=== PATIENT | female | born 1970 | race Caucasian/White ===

== ENCOUNTER 2016-08-27 20:41 | Emergency (ER) | payer BC, OTHER ==
[~2016-08-27] VITALS: Ht 157.5 cm; Wt 89.8 kg
[2016-08-27 20:41] VITALS: BP 172/100
--- NOTE | 2016-08-28 09:08 | REP ---
Left thumb three views : There is no fracture or dislocation. Mineralization and joint spaces are normal. There are no calcifications or foreign bodies. Impression: Negative left thumb. Signed by Dequan Wharton MD 08/28/2016 08:58 A
== END 2016-08-27 22:50 | disposition home or self-care (01) ==
LOC: M ED 22:31
DX: S60.012A Contusion of left thumb without damage to nail, initial encounter (principal); W22.8XXA Striking against or struck by other objects, initial encounter; Y92.019 Unspecified place in single-family (private) house as the place of occurrence of the external cause; Y93.9 Activity, unspecified; Y99.9 Unspecified external cause status; F17.200 Nicotine dependence, unspecified, uncomplicated

== ENCOUNTER → 2017-11-27 | Outpatient (REF) | payer BC | LOC: M LAB REF 15:43 | DX: N60.31 Fibrosclerosis of right breast (principal) | CPT/HCPCS: 88305 ==

== ENCOUNTER → 2019-01-31 | Outpatient (REF) | payer BC | LOC: M LAB REF 15:46 | PROVIDERS: ATTEND Radiology Diagnostic Radiology | DX: N60.12 Diffuse cystic mastopathy of left breast (principal); N60.82 Other benign mammary dysplasias of left breast ==

== ENCOUNTER → 2019-05-01 | Outpatient (CLI) | payer BC ==
--- NOTE | 2019-05-01 11:51 | REP ---
Clinical: Costochondral junction syndrome . Comparison: None . Technique: PA and lateral. Findings: The mediastinum and cardiac silhouette are normal. The lung sun are clear and without acute consolidation, effusion, or pneumothorax. The skeletal structures are intact and normal. Impression: 1. No acute cardiopulmonary process. Electronically Signed by Jeffy Pimentel MD 05/01/2019 11:43 A
[2019-05-01 16:33] LABS: BASO % 0.5 % (0.0-1.0); EOS # 0.1 10^3/uL (0.0-0.5); EOS % 0.9 % (0.0-3.0); HEMATOCRIT 44.8 % (36.0-47.0); HEMOGLOBIN 14.8 g/dl (12.0-15.5); LYMPH # 2.5 10^3/uL (1.5-5.0); MEAN CORPUSCULAR VOLUME 96.8 fl (80.0-96.0); MONO # 0.5 10^3/uL (0.0-0.8); MONO % 5.9 % (0.0-5.0); NEUTROPHILS # 4.8 10^3/uL (1.5-8.5); NEUTROPHILS % 60.4 % (36.0-66.0); PLATELET COUNT, AUTOMATED 328 10^3/uL (150-450); RED BLOOD COUNT 4.63 10^6/uL (4.00-5.40); WHITE BLOOD COUNT 7.9 10^3/uL (4.0-10.0)
[2019-05-01 16:38] LABS: ALBUMIN 4.2 GM/DL (3.2-5.2); ALT/SGPT 23 U/L (12-78); AMYLASE 38 U/L (25-115); BILIRUBIN,TOTAL 0.4 MG/DL (0.2-1.0); BLOOD UREA NITROGEN 8 MG/DL (7-18); CALCIUM LEVEL 8.9 MG/DL (8.5-10.1); CARBON DIOXIDE LEVEL 27 MEQ/L (21-32); CHLORIDE LEVEL 106 MEQ/L (98-107); CK-MB VALUE MASS < 1.0 NG/ML (<3.6); CPK CREATINE PHOSPHOKINASE 112 U/L (26-192); CREATININE FOR GFR 0.76 MG/DL (0.55-1.30); GLOMERULAR FILTRATION RATE > 60.0 (>58); GLUCOSE, FASTING 85 MG/DL (70-100); LIPASE 113 U/L (73-393); MB/CK RELATIVE INDEX 0.89 (< OR =4); POTASSIUM SERUM 4.8 MEQ/L (3.5-5.1); SODIUM LEVEL 139 MEQ/L (136-145); TROPONIN I < 0.02 NG/ML (< 0.10)
== END ==
LOC: M WUC 11:13
PROVIDERS: ATTEND Nurse Practitioner Family
DX: M94.0 Chondrocostal junction syndrome [Tietze] (principal); R51 Headache; R19.7 Diarrhea, unspecified

== ENCOUNTER → 2019-05-01 | Outpatient (REF) | payer BC ==
[~2019-05-01] MED LIST: AMLO25TA PO; AVAP150T31 PO; DICY10CA13 PO; LEVOTAB10 PO; LEXA1TAB2 PO
== END ==
LOC: M LAB REF 15:55
PROVIDERS: ATTEND Nurse Practitioner Family
DX: R19.7 Diarrhea, unspecified (principal)

== ENCOUNTER → 2019-05-03 | Outpatient (REF) | payer BC | LOC: M LAB REF 12:40 | PROVIDERS: ATTEND Internal Medicine | DX: R53.83 Other fatigue (principal); I10 Essential (primary) hypertension; R19.7 Diarrhea, unspecified ==

== ENCOUNTER 2019-05-05 15:08 | Emergency (ER) | payer BC ==
[~2019-05-05] VITALS: Ht 160 cm; Wt 94.6 kg
[2019-05-05] MEDS ORDERED: LEXA1TAB2 PO (15:17)
[2019-05-05] MEDS ORDERED: AMLO25TA PO (15:17)
[2019-05-05] MEDS ORDERED: LEVOTAB10 PO (15:17)
[2019-05-05] MEDS ORDERED: DICY10CA13 PO (15:17)
[2019-05-05] MEDS ORDERED: AVAP150T31 PO (15:17)
[2019-05-05 16:04] LABS: BASO % 0.4 % (0.0-1.0); EOS # 0.1 10^3/uL (0.0-0.5); EOS % 0.7 % (0.0-3.0); HEMATOCRIT 43.9 % (36.0-47.0); HEMOGLOBIN 15.4 g/dl (12.0-15.5); LYMPH # 2.7 10^3/uL (1.5-5.0); LYMPH % 30.8 % (24.0-44.0); MEAN CORPUSCULAR HEMOGLOBIN 32.6 pg (27.0-33.0); MEAN CORPUSCULAR HGB CONC 35.1 g/dl (32.0-36.5); MEAN CORPUSCULAR VOLUME 92.8 fl (80.0-96.0); MONO # 0.5 10^3/uL (0.0-0.8); MONO % 5.5 % (0.0-5.0); NEUTROPHILS # 5.6 10^3/uL (1.5-8.5); NEUTROPHILS % 62.4 % (36.0-66.0); PLATELET COUNT, AUTOMATED 306 10^3/uL (150-450); RED BLOOD COUNT 4.73 10^6/uL (4.00-5.40); WHITE BLOOD COUNT 8.9 10^3/uL (4.0-10.0)
--- NOTE | 2019-05-05 16:43 | REP ---
Clinical: Headache and dizziness Comparison: none Findings: The ventricles, sulci, and cisterns are normal in position and appearance. Tirado-white differentiation is maintained. No acute intracranial hemorrhage, mass/mass effect, pathology or trauma/injury. No evidence for acute infarction. No extra-axial fluid collection. Calvarium is intact. Paranasal sinuses and mastoid air cells are clear. Impression: Normal noncontrast head CT. No evidence for acute intracranial pathology or trauma/injury. Electronically Signed by Jeffy Pimentel MD 05/05/2019 04:34 P
[2019-05-05] MEDS: GASTROGRAFIN SOLUTION 30ML PO SCH ×2 (17:26→18:50)
[2019-05-05] MEDS ORDERED: ISOVUE-370 76% 100ML VIAL (Q9967) As Ordered ONE (18:38)
--- NOTE | 2019-05-05 19:44 | REPVR ---
PROCEDURE INFORMATION: Exam: CT Abdomen And Pelvis With Contrast Exam date and time: 05/05/2019 6:44 PM Age: 48 years old Clinical indication: Constipation; Additional info: Bowel habitus change TECHNIQUE: Imaging protocol: Computed tomography of the abdomen and pelvis with intravenous contrast. Radiation optimization: All CT scans at this facility use at least one of these dose optimization techniques: automated exposure control; mA and/or kV adjustment per patient size (includes targeted exams where dose is matched to clinical indication); or iterative reconstruction. Contrast material: ISOVUE 370; Contrast volume: 100 ml; Contrast route: IV; COMPARISON: No relevant prior studies available. FINDINGS: Liver: 2.0 cm simple cyst in the liver. Liver is otherwise unremarkable. Gallbladder and bile ducts: Normal. No calcified stones. No ductal dilation. Pancreas: Normal. No ductal dilation. Spleen: Normal. No splenomegaly. Adrenals: Normal. No mass. Kidneys and ureters: Nonobstructing calyceal stone in the left kidney. Kidneys are otherwise unremarkable. No hydronephrosis. Stomach and bowel: There is mild colonic diverticulosis without evidence of diverticulitis. Appendix: No evidence of appendicitis. Intraperitoneal space: Unremarkable. No free air. No significant fluid collection. Vasculature: Unremarkable. No abdominal aortic aneurysm. Lymph nodes: Unremarkable. No enlarged lymph nodes. Bladder: Unremarkable as visualized. Reproductive: There has been prior hysterectomy. 16 mm hyperattenuating nodule in the vaginal cuff. Bones/joints: There are degenerative changes in the spine and pelvis. Soft tissues: Small fat-containing umbilical hernia. IMPRESSION: 1. Colonic diverticulosis without evidence of diverticulitis. 2. Small enhancing nodule in the vaginal cuff or in the cervix if a cervix sparing hysterectomy was performed. Correlation with pelvic ultrasound maybe beneficial. 3. No acute findings. Other incidental findings as above. Electronically signed by: Vern Shoemaker On 05/05/2019 19:44:16 PM
[2019-05-05 21:00] VITALS: BP 164/92
--- NOTE | 2019-05-06 08:31 | ECGEPIP ---
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
== END 2019-05-05 21:46 | disposition home or self-care (01) ==
LOC: M ED 15:08
DX: R10.9 Unspecified abdominal pain (principal); R93.5 Abnormal findings on diagnostic imaging of other abdominal regions, including retroperitoneum; K57.30 Diverticulosis of large intestine without perforation or abscess without bleeding; K76.89 Other specified diseases of liver; N80.9 Endometriosis, unspecified; I10 Essential (primary) hypertension; F32.9 Major depressive disorder, single episode, unspecified; J30.9 Allergic rhinitis, unspecified; F17.200 Nicotine dependence, unspecified, uncomplicated; Z79.899 Other long term (current) drug therapy
CPT/HCPCS: 70450; 74177; 80047; 85025; 93005; 99285; Q9963; Q9967

== ENCOUNTER → 2019-08-22 | Outpatient (CLI) | payer BC ==
--- NOTE | 2019-08-22 19:04 | ECGEPIP ---
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
== END ==
LOC: M LAB 14:18
PROVIDERS: ATTEND Orthopaedic Surgery Hand Surgery
DX: Z01.810 Encounter for preprocedural cardiovascular examination (principal)

== ENCOUNTER → 2019-08-26 | Outpatient (CLI) | payer BC | LOC: M LABSMTC 09:24 | PROVIDERS: ATTEND Orthopaedic Surgery Hand Surgery | DX: Z03.818 Encounter for observation for suspected exposure to other biological agents ruled out (principal); Z11.59 Encounter for screening for other viral diseases ==

== ENCOUNTER → 2019-08-29 | Outpatient (REF) | payer BC | LOC: M LAB REF 16:48 | PROVIDERS: ATTEND Orthopaedic Surgery Hand Surgery | DX: M65.18 Other infective (teno)synovitis, other site (principal) ==

== ENCOUNTER → 2019-11-06 | Outpatient (REF) | payer BC | LOC: M LAB REF 16:39 | PROVIDERS: ATTEND Internal Medicine | DX: D51.9 Vitamin B12 deficiency anemia, unspecified (principal) ==

== ENCOUNTER 2020-12-08 08:03 | Emergency (ER) | payer BC ==
[~2020-12-08] VITALS: Ht 157.5 cm; Wt 91.9 kg
[2020-12-08 08:08] VITALS: BP 160/98
[2020-12-08] MEDS ORDERED: NS 1,000 ML IV SCH (09:10)
[2020-12-08] MEDS ORDERED: ONDANSETRON 4MG/2ML VIAL IV ONE (09:25)
[2020-12-08] MEDS ORDERED: NS 1,000 ML IV ONE (09:25)
[2020-12-08] MEDS ORDERED: NICOTINE 14 MG/24 HR TRANSDERMAL TD ONE (09:30)
[2020-12-08 09:41] LABS: HEMATOCRIT 42.9 % (36.0-47.0); MEAN CORPUSCULAR HEMOGLOBIN 32.4 pg (27.0-33.0); MEAN CORPUSCULAR VOLUME 92.7 fl (80.0-96.0); PLATELET COUNT, AUTOMATED 303 10^3/uL (150-450); RED BLOOD COUNT 4.63 10^6/uL (4.00-5.40); WHITE BLOOD COUNT 8.5 10^3/uL (4.0-10.0)
[2020-12-08 10:18] LABS: BLOOD UREA NITROGEN 7 MG/DL (7-18); CALCIUM LEVEL 9.2 MG/DL (8.5-10.1); CARBON DIOXIDE LEVEL 25 MEQ/L (21-32); CHLORIDE LEVEL 107 MEQ/L (98-107); CK-MB VALUE MASS 2.4 NG/ML (<3.6); CPK CREATINE PHOSPHOKINASE 172 U/L (26-192); CREATININE FOR GFR 0.71 MG/DL (0.55-1.30); GLOMERULAR FILTRATION RATE > 60.0 (>58); GLUCOSE, FASTING 122 MG/DL (70-100); POTASSIUM SERUM 3.7 MEQ/L (3.5-5.1); SODIUM LEVEL 139 MEQ/L (136-145); TROPONIN I < 0.02 NG/ML (< 0.10)
--- NOTE | 2020-12-08 10:43 | REP ---
INDICATION: chest tightness. COMPARISON: 05/01/2019 the only prior TECHNIQUE: PA and lateral FINDINGS: The superior mediastinal structures are midline. The cardiac silhouette is unremarkable in size, shape, and position. The diaphragmatic surfaces of the lungs are regular, and the costophrenic angles are clear. The pulmonary sun are clear. The imaged osseous structures are intact. IMPRESSION: There is no acute cardiopulmonary disease. <Electronically signed by Alexey Jean > 12/08/20 [id number]
[2020-12-08] MEDS ORDERED: ZOFR4TAB16 PO (11:22)
--- NOTE | 2020-12-08 14:00 | ECGEPIP ---
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
== END 2020-12-08 11:48 | disposition home or self-care (01) ==
LOC: M ED 08:03
DX: A08.4 Viral intestinal infection, unspecified (principal); E86.0 Dehydration; I10 Essential (primary) hypertension; F17.210 Nicotine dependence, cigarettes, uncomplicated; Z98.890 Other specified postprocedural states
CPT/HCPCS: 71046; 80048; 82550; 82553; 84484; 85027; 87798; 93005; 94760; 96374; 99284; J2405

== ENCOUNTER → 2022-04-29 | Outpatient (CLI) | payer OTHER ==
[~2022-04-29] MED LIST changes: +ZOFR4TAB16 PO
== END ==
LOC: M RAD 11:31
PROVIDERS: ATTEND Physician Assistant Medical
DX: M25.572 Pain in left ankle and joints of left foot (principal); S99.922A Unspecified injury of left foot, initial encounter

== ENCOUNTER → 2022-07-05 | Outpatient (CLI) | payer OTHER ==
[~2022-07-05] MED LIST changes: +ISOVUE-370 76% 100ML VIAL As Ordered ONE
== END ==
LOC: M RAD 14:48
PROVIDERS: ATTEND Otolaryngology
DX: R49.0 Dysphonia (principal); R05.9 Cough, unspecified
CPT/HCPCS: 70491; Q9967

== ENCOUNTER → 2022-08-16 | Outpatient (CLI) | payer OTHER ==
[~2022-08-16] MED LIST changes: -ISOVUE-370 76% 100ML VIAL As Ordered ONE
== END ==
LOC: M RAD 15:32
PROVIDERS: ATTEND Internal Medicine
DX: E04.2 Nontoxic multinodular goiter (principal)

== ENCOUNTER → 2023-03-06 | Outpatient (REF) | payer OTHER ==
[~2023-03-06] MED LIST changes: +DICY-61 PO; -DICY10CA13 PO
== END ==
LOC: M LAB REF 16:41
PROVIDERS: ATTEND Ophthalmology
DX: D22.30 Melanocytic nevi of unspecified part of face (principal)

== ENCOUNTER → 2023-03-14 | Outpatient (CLI) | payer OTHER ==
[2023-03-14 10:03] LABS: BASO % 0.5 % (0.0-1.0); EOS # 0.1 10^3/uL (0.0-0.5); EOS % 0.8 % (0.0-3.0); HEMATOCRIT 45.4 % (36.0-47.0); HEMOGLOBIN 15.8 g/dl (12.0-15.5); LYMPH % 25.4 % (24.0-44.0); MEAN CORPUSCULAR HEMOGLOBIN 33.1 pg (27.0-33.0); MEAN CORPUSCULAR HGB CONC 34.8 g/dl (32.0-36.5); MEAN CORPUSCULAR VOLUME 95.2 fl (80.0-96.0); MONO # 0.5 10^3/uL (0.0-0.8); MONO % 6.4 % (2.0-8.0); NEUTROPHILS # 5.3 10^3/uL (1.5-8.5); NEUTROPHILS % 66.8 % (36.0-66.0); PLATELET COUNT, AUTOMATED 290 10^3/uL (150-450); RED BLOOD COUNT 4.77 10^6/uL (4.00-5.40)
[2023-03-14 10:27] LABS: ERYTHROCYTE SEDIMENTATION RATE 14 mm/hr (0-30)
[2023-03-14 10:30] LABS: URIC ACID 4.8 MG/DL (3.1-7.8)
[2023-03-14 10:32] LABS: C REACTIVE PROTEIN QUANTITATIV < 0.40 MG/DL (<1.0)
[2023-03-14 10:33] LABS: RHEUMATOID FACTOR QUANT < 3.5 IU/ML (<14)
[2023-03-15 14:07] LABS: ANTINUCLEAR ANTIBODIES DIRECT Negative (Negative)
== END ==
LOC: M LAB 09:10
PROVIDERS: ATTEND Orthopaedic Surgery
DX: S46.012A Strain of muscle(s) and tendon(s) of the rotator cuff of left shoulder, initial encounter (principal); G56.22 Lesion of ulnar nerve, left upper limb; Y93.9 Activity, unspecified; Y92.9 Unspecified place or not applicable

== ENCOUNTER → 2023-04-03 | Outpatient (REF) | payer OTHER ==
[2023-04-03 17:03] LABS: RSV AMPLIFICATION NEGATIVE (NEGATIVE)
== END ==
LOC: M LAB REF 16:03
PROVIDERS: ATTEND Internal Medicine
DX: U07.1 COVID-19 (principal)

== ENCOUNTER → 2023-04-18 | Outpatient (CLI) | payer OTHER | LOC: M EKG 13:13 | PROVIDERS: ATTEND Orthopaedic Surgery | DX: Z01.818 Encounter for other preprocedural examination (principal) ==

== ENCOUNTER → 2023-10-13 | Outpatient (CLI) | payer OTHER | LOC: M WHC 08:27 | PROVIDERS: ATTEND Internal Medicine | DX: Z12.31 Encounter for screening mammogram for malignant neoplasm of breast (principal); R92.333 Mammographic heterogeneous density, bilateral breasts; R92.8 Other abnormal and inconclusive findings on diagnostic imaging of breast ==

== ENCOUNTER → 2023-11-09 | Outpatient (CLI) | payer OTHER | LOC: M WHC 08:06 | PROVIDERS: ATTEND Internal Medicine | DX: R92.8 Other abnormal and inconclusive findings on diagnostic imaging of breast (principal); N60.12 Diffuse cystic mastopathy of left breast | CPT/HCPCS: 76642; 77065; G0279 ==

== ENCOUNTER → 2024-01-18 | Day surgery (SDC) | payer OTHER ==
[~2024-01-18] VITALS: Ht 160 cm; Wt 98.0 kg
[~2024-01-18] MED LIST changes: +LIDOCAINE 2% 100MG/5ML SDV (FOR ANES.) As Ordered ONE; +MELO15TA28 PO; +NS 250 ML IV ONE; +PHEN30CA21 PO; +XALA0.007 OU; +propofoL 200 MG/20 ML VIAL As Ordered ONE
[2024-01-18 09:48] VITALS: TEMP 97.7
[2024-01-18 10:00] VITALS: BP 180/100; O2SAT 97
== END | disposition home or self-care (01) ==
LOC: M OPP 08:12
PROVIDERS: ATTEND Surgery
DX: Z12.11 Encounter for screening for malignant neoplasm of colon (principal); Z12.12 Encounter for screening for malignant neoplasm of rectum; K63.5 Polyp of colon; K57.30 Diverticulosis of large intestine without perforation or abscess without bleeding; I10 Essential (primary) hypertension; Z79.899 Other long term (current) drug therapy; Z90.710 Acquired absence of both cervix and uterus; F17.210 Nicotine dependence, cigarettes, uncomplicated; Z90.89 Acquired absence of other organs

== ENCOUNTER → 2024-04-19 | Outpatient (REF) | payer OTHER ==
[~2024-04-19] MED LIST changes: -LIDOCAINE 2% 100MG/5ML SDV (FOR ANES.) As Ordered ONE; -NS 250 ML IV ONE; -propofoL 200 MG/20 ML VIAL As Ordered ONE
[2024-04-19 13:57] LABS: RSV AMPLIFICATION NEGATIVE (NEGATIVE)
== END ==
LOC: M LAB REF 12:31
PROVIDERS: ATTEND Internal Medicine
DX: R05.1 Acute cough (principal)

== ENCOUNTER → 2024-07-02 | Outpatient (CLI) | payer OTHER | LOC: M WHC 07:10 | PROVIDERS: ATTEND Internal Medicine | DX: R10.11 Right upper quadrant pain (principal) ==